=== PATIENT | female | born 1965 | race African-American/Black ===

== ENCOUNTER 2017-03-16 13:37 | Emergency (ER) | payer BC | END 2017-03-16 17:30 | disposition home or self-care (01) | LOC: FTE 13:37 | DX: R21 Rash and other nonspecific skin eruption (principal); J45.909 Unspecified asthma, uncomplicated | CPT/HCPCS: 99284 ==

== ENCOUNTER 2017-03-19 12:36 | Emergency (ER) | payer BC ==
[2017-03-19] MEDS: HYDROCODONE/APAP (10/325) TAB PO (13:13)
== END 2017-03-19 13:18 | disposition home or self-care (01) ==
LOC: FTE 12:36
DX: B02.9 Zoster without complications (principal); J45.909 Unspecified asthma, uncomplicated
CPT/HCPCS: 99284

== ENCOUNTER 2017-03-23 19:50 | Emergency (ER) | payer BC ==
[2017-03-23] MEDS: morphine 10 MG INJ IM (20:32)
== END 2017-03-23 21:04 | disposition home or self-care (01) ==
LOC: FTE 19:50
DX: B02.23 Postherpetic polyneuropathy (principal); J45.909 Unspecified asthma, uncomplicated
CPT/HCPCS: 96372; 99284-25

== ENCOUNTER 2017-03-25 20:15 | Emergency (ER) | payer BC | END 2017-03-25 20:24 | disposition left against medical advice (07) | LOC: E/R 20:24 | DX: Z53.21 Procedure and treatment not carried out due to patient leaving prior to being seen by health care provider (principal) ==